=== PATIENT | female | born 1990 | race Caucasian/White ===

== ENCOUNTER 2019-06-29 19:58 | Inpatient (IN) | payer BC ==
[2019-06-29] VITALS (13 sets, daily range): BP systolic 108–136; BP diastolic 40–79; PULSE 87–105; TEMP 98–98.5
[~2019-06-29] VITALS: Ht 175.3 cm; Wt 130.5 kg
[~2019-06-29 19:58] MED LIST: MOTRIN 800800 MG/TAB PO; PERCOCET 325 MG1 TA2 PO; PRENATAL1 TA3 PO
[2019-06-29 23:41] LABS: BASO % 0.3 % (0.0-2.0); EOS # 0.3 (0.0-0.7); EOS % 3.1 % (0-4.0); GRAN # 6.9 (1.4-6.5); GRAN % 64.4 % (42.2-75.2); HEMATOCRIT 34.9 % (37.0-47.0); HEMOGLOBIN 11.5 g/dl (12.5-16.0); LYMPH # 2.3 (1.2-3.4); LYMPH % 21.7 % (20.0-51.0); MEAN CELL VOLUME 84 fl (80.0-100.0); MEAN CORPUSCULAR HEMOGLOBIN 28 pg (27.0-31.0); MEAN CORPUSCULAR HGB CONC 33 g/dl (33.0-37.0); MEAN PLATELET VOLUME 9.6 fl (7.4-10.4); MONO # 1.1 (0.1-0.6); MONO % 10.1 % (1.7-9.3); PLATELET COUNT 370 K/mm3 (130-400); RED BLOOD COUNT 4.14 M/mm3 (4.10-5.30); REDCELL DISTRIBUTION WIDTH-CV 13.1 % (11.5-14.5)
[2019-06-30] VITALS (10 sets, daily range): BP systolic 100–124; BP diastolic 48–77; PULSE 71–90; TEMP 98.1–98.8
--- NOTE | 2019-06-30 09:50 | NUR ---
Initial visit; Parents thanked Manager Process for offering congratulations and God's blessings for the of their daughter. Manager Process thanked family for choosing [facility].
[2019-07-01] MEDS ORDERED: PRENATAL MVI PO (02:00)
[2019-07-01 06:30] VITALS: BP 94/48; PULSE 65; TEMP 97.5
--- NOTE | 2019-07-01 06:30 | NUR ---
Rests in bed, alert. ibuprofen 800 mg given as ordered. Denies other needs at this time.
--- NOTE | 2019-07-01 07:30 | NUR ---
Rests in bed, alert. Denies any needs at this time.
[2019-07-01] MEDS ORDERED: PERCOCET 325 MG1 TA2 PO (08:46)
[2019-07-01] MEDS ORDERED: IBU800 M1 PO (08:46)
[2019-07-01 18:07] VITALS: BP 125/64; PULSE 74; TEMP 97.9
[2019-07-01 22:00] VITALS: BP 125/57; PULSE 84; TEMP 97.7
[2019-07-02 07:30] VITALS: BP 122/73; PULSE 75; TEMP 97.8
== END 2019-07-02 10:30 | disposition home or self-care (01) | DRG 788 ==
LOC: LDRO 19:58 → LDR 20:43 → OB 23:00
PROVIDERS: ADMIT Student in an Organized Health Care Education/Training Program
PROC: 10D00Z1 Extraction of Products of Conception, Low, Open Approach (ICD-10-PCS; principal; 2019-06-29)
DX: O42.02 Full-term premature rupture of membranes, onset of labor within 24 hours of rupture (principal); Z3A.37 37 weeks gestation of pregnancy; Z37.0 Single live birth; O34.219 Maternal care for unspecified type scar from previous cesarean delivery; O14.04 Mild to moderate pre-eclampsia, complicating childbirth; O99.214 Obesity complicating childbirth
CPT/HCPCS: J0171; J0690; J1885; J2175; J2370; J2405; J2590; J3010; J7120

== ENCOUNTER → 2022-12-23 | Outpatient (CLI) | payer BC ==
[~2022-12-23] MED LIST changes: +IBU800 M1 PO; +PRENATAL MVI PO
--- NOTE | 2022-12-23 15:10 | NUR ---
Pt, Enedina Sheikh, presents to walk-in clinic with 3 week old baby girl, Rafaela Sheikh, to evaluate milk transfer. Rafaela was born by c/section on [birth year] and weighed 9# 9.8oz (4360 gms). She was seen at clinic on 12/11/22 and weighed 8#13.2oz At that time she nursed and had a weight gain of 2oz p feeding. It was decied that pt would breastfeed, supplement EBM 1-2oz p and express to maintain milk supply. Rafaela was seen at [facility] on 12/16/22 and pt states her weight was 9# 2oz. Today Rafaela weighs 9# 9.1oz, for an average weight gain of an ounce a day, but this is with the support of 8-16oz EBM after . Pt states she is able to collect 1-2oz with the [place] placed to the breast after Rafaela has nursed, while Rafaela is on the second breast. Pt nurses Rafaela at clinic, she has a weight gain of 3.1oz after being breastfed once and then again for another 10 minutes. LC suggests reducing supplement to every other feeding to challenge Rafaela a little bit, pt aware Rafaela may nurse more frequently if she is not supplemented. POC: Continue BF ad abad, supplement 1-2oz p every other feeding unless Rafaela is clearly still hungry and does not nurse any longer. F/U: Anticipated in two days at walk-in clinic. Questions invited and answered.
== END ==
LOC: LAC 13:35
DX: Z39.1 Encounter for care and examination of lactating mother (principal)

== ENCOUNTER → 2022-12-25 | Outpatient (CLI) | payer BC ==
--- NOTE | 2022-12-25 13:50 | NUR ---
Pt, Enedina Sheikh, presents to walk-in clinic with 3 week old baby girl, Rafaela Sheikh, for a weight check. Rafaela was born on [birth year] and weighed 9# 9.8oz (4360 gms). She was slow to gain weight initially and pt has provided 1-2oz EBM p breastfeedings. On 12/23/22 Rafaela weighed 9# 9.1oz (4340 gms). Pt was advised to decrease EBM by bottle to q other feeding. Today Rafaela weighs 9# 15.3oz (4518 gms). Pt advised to eliminate supplement p unless Rafaela demands otherwise. POC: Breastfeed ad abad. F/U: Weight check in 5 days at walk-in clinic. Questions invited and answered.
== END ==
LOC: LAC 13:13
DX: Z39.1 Encounter for care and examination of lactating mother (principal); Z71.89 Other specified counseling